=== PATIENT | male | born 1955 | race Caucasian/White ===

== ENCOUNTER → 2016-07-11 | Outpatient (CLI) | payer BC | END | disposition home or self-care (01) | LOC: GMAL 14:40 | PROVIDERS: ATTEND Family Medicine | DX: Z00.00 Encounter for general adult medical examination without abnormal findings (principal); E55.9 Vitamin D deficiency, unspecified ==

== ENCOUNTER → 2016-12-16 | Outpatient (CLI) | payer BC ==
--- NOTE | 2016-12-18 11:43 | MRI ---
Study: Noncontrast MRI of the left ankle. Exam Date: 12/16/2016 12:00 AM CDT Ordering Provider: WALDEMAR JOSEPH Clinical Indication: PAIN IN LEFT HIND FOOT Comparison: None Technique: Multiplanar, multisequence MR images of the left ankle were obtained on a high-field magnet without contrast. Findings: There is thickening and increased signal seen within the proximal attachment of the plantar fascia compatible with mild to moderate plantar fasciitis. No definite plantar fascial tear. ATFL, PTFL, and CFL are intact. Anterior tendons are normal in signal and morphology. The flexor tendons and peroneal tendons are unremarkable. Achilles tendon is intact. Nonspecific inflammatory changes seen within Kager's fat pad without fluid collection or definite tenosynovitis. No lesion seen in the sinus tarsi or tarsal tunnel. No bone marrow edema or significant degenerative change. Visualized cartilage appears intact. Impression: 1. [id number] plantar fasciitis without definite plantar fascial tear. 2. Nonspecific edema with Kager's fat pad. Electronically signed by: Branden Christian MD 12/18/2016 11:42 AM CDT
== END | disposition home or self-care (01) ==
LOC: MRI 08:06
PROVIDERS: ATTEND Physical Medicine & Rehabilitation
DX: Z79.891 Long term (current) use of opiate analgesic (principal); M72.2 Plantar fascial fibromatosis; M79.672 Pain in left foot; M51.36 Other intervertebral disc degeneration, lumbar region

== ENCOUNTER → 2018-05-01 | Outpatient (CLI) | payer BC | LOC: GMAL 10:43 | PROVIDERS: ATTEND Family Medicine | DX: Z00.01 Encounter for general adult medical examination with abnormal findings (principal) ==

== ENCOUNTER → 2019-05-29 | Outpatient (CLI) | payer BC | LOC: GMAL 16:26 | PROVIDERS: ATTEND Family Medicine | DX: R30.0 Dysuria (principal); R35.0 Frequency of micturition; R53.82 Chronic fatigue, unspecified ==

== ENCOUNTER 2019-06-04 20:03 | Emergency (ER) | payer BC ==
[2019-06-04 20:24] VITALS: TEMP 97.9; O2SAT 97
[2019-06-04] MEDS: SODIUM CHLORIDE 0.9% 1000ML 1,000 ML IVS ONE (21:13)
[2019-06-04] MEDS: KETOROLAC TROMETHAMINE INJ 30 MG/ML VIAL IV ONE (21:14)
--- NOTE | 2019-06-04 21:44 | CT ---
EXAM DESCRIPTION: Abdoment/Pelvis w/o Contrast CLINICAL HISTORY: 63 years Male R FLANK PAIN, SUSPECT NEPHROLITHIASIS. COMPARISON: None TECHNIQUE: Images were obtained in axial, sagittal, and coronal planes. No intravenous contrast was administered. This exam was performed according to our departmental dose-optimization program which includes use of Automated Exposure Control, adjustment of the mA and/or kV according to patient size and/or use of iterative reconstruction technique. FINDINGS: 1.4 cm calculus right renal pelvis. No associated hydronephrosis. Additional 5 mm nonobstructing calculus inferior left kidney. No hydronephrosis on left. Unremarkable bladder. Enlarged prostate gland with calcification. Bilateral inguinal hernias which contain only mesenteric fat. No abnormality involving the liver, pancreas, gallbladder, or adrenal glands bilaterally. Spleen is enlarged measuring 13.6 cm in greatest dimension. No dilatation abdominal aorta. No adenopathy or abnormal fluid collections seen. Appendix not well identified however no secondary signs for appendicitis. No bowel obstruction or perforation. Diverticulosis distal left colon with no associated inflammatory change. Metallic fixation posteriorly L4-5 and L5-S1 levels. No acute osseous abnormality. No abnormality lower lungs bilaterally. IMPRESSION: 1.4 cm calculus right renal pelvis with no significant hydronephrosis. Early staghorn calculus is suspected. Additional punctate nonobstructing calcification inferior left kidney. Enlarged prostate gland. Electronically signed by: Liz Castro MD 06/04/2019 9:43 PM CDT
[2019-06-04] MEDS: TAMSULOSIN 0.4 MG CAP PO ONE (22:01)
[2019-06-04 22:03] VITALS: BP 138/88
--- NOTE | 2019-06-04 23:09 | ED.PDOC ---
History of Present Illness - General Chief Complaint: GI Problem Stated Complaint: right mid back pain, and groin pain Time Seen by Provider: 06/04/19 20:30 Information Source: patient Exam Limitations: no limitations - History of Present Illness Initial Comments: R GREATER THAN L FLANK PAIN. 2 WKS, INTERMITTENT. BLOOD IN URINE PER DR. MCKEON THUS SUSPECTED KIDNEY STONE. Abdominal Pain Onset Location: flank Pain Radiation: groin Quality: moderate, intermittent Improving Factors: nothing Worsening Factors: nothing Associated Symptoms: denies symptoms Review of Systems - Review of Systems Constitutional: States: no symptoms reported EENTM: States: no symptoms reported Respiratory: States: no symptoms reported Cardiology: States: no symptoms reported Gastrointestinal/Abdominal: Denies: constipation, diarrhea, nausea, vomiting Genitourinary: Denies: dysuria, frequency Musculoskeletal: States: no symptoms reported Skin: States: no symptoms reported Neurological: States: no symptoms reported Endocrine: States: no symptoms reported Hematologic/Lymphatic: States: no symptoms reported All other Systems: Reviewed and Negative Past Medical History (General) - Patient Medical History Hx Seizures: No Hx Stroke: No Hx Dementia: No Hx Asthma: No Hx of COPD: No Hx Cardiac Disorders: No Hx Congestive Heart Failure: No Hx Pacemaker: No Hx Hypertension: Yes Hx Thyroid Disease: No Hx Diabetes: No Hx Gastroesophageal Reflux: No Hx Renal Disease: No Hx Cancer: No Hx of HIV: No Hx Hepatitis C: No Hx MRSA: No Surgical History: other - Vaccination History Hx Tetanus, Diphtheria Vaccination: Yes Hx Influenza Vaccination: Yes Hx Pneumococcal Vaccination: No - Social History Hx Tobacco Use: Yes Hx Chewing Tobacco Use: No Hx Alcohol Use: No Hx Substance Use: No Hx Substance Use Treatment: No Hx Depression: No Feels Threatened In Home Enviroment: No Feels Threatened In a Relationship: No Hx Physical Abuse: No Hx Emotional Abuse: No Hx Suspected Abuse: No - Female History Patient is a Female of Child Bearing Age (10 -59 yrs old): No - Triage Comment ED Triage Comment: The patient was having pain in his right flank and the pain came and went over the past 2 weeks. Family Medical History - Family History Mother Family History: No Known Physical Exam - Physical Exam General Appearance: Alert, No apparent distress Eyes, Ears, Nose, Throat Exam: normal ENT inspection Neck: normal inspection Respiratory: no respiratory distress, no accessory muscle use Cardiovascular/Chest: normal peripheral pulses Gastrointestinal/Abdominal: normal bowel sounds, non tender, soft, no organomegaly Back Exam: normal inspection, no CVA tenderness Extremity: normal inspection Neurologic: alert, normal mood/affect Skin Exam: normal color, warm/dry Lymphatic: no adenopathy Progress - Results/Orders Results/Orders: STAGHORN CALCULUS, R RENAL PELVIS 1.4 CM. L INFERIOR KIDNEY 0.5 CM. BOTH ARE NON-OBSTRUCTING AND NOT YET LOCATED IN URETERS BUT ARE CAUSING SX. GAVE TORADOL. MILD DEHYDRATION - BUN 21. BOLUSED. WITH LARGE 1.4 CM R STONE, IT WILL EVENTUALLY NEED UROLOGICAL INTERVENTION, THUS REFERRED. Departure - Departure Clinical Impression: Staghorn calculus, Bilateral flank pain, Mild dehydration, Elevated BUN Disposition: Discharge to Home or Self Care Condition: Good Departure Forms: ED Discharge - Pt. Copy, Patient Portal Self Enrollment Instructions: Kidney Stones in Adults Diet: resume usual diet Activity: increase activity as tolerated Referrals: Juanjo Mckeon III, MD [Primary Care Provider] - 1-2 Weeks Additional Instructions: Please try to drink at least 64 ounces of water per day. Take ibuprofen as needed for pain. Please see urology since the stone on the right side is large.
== END 2019-06-04 23:15 | disposition home or self-care (01) ==
LOC: ER 20:03
DX: N20.0 Calculus of kidney (principal); E86.0 Dehydration; I10 Essential (primary) hypertension; F17.200 Nicotine dependence, unspecified, uncomplicated
CPT/HCPCS: 74176; 80053; 81001; 85025; J1885; J7030

== ENCOUNTER → 2020-04-24 | Outpatient (CLI) | payer OTHER | LOC: GMAL 12:35 | PROVIDERS: ATTEND Family Medicine | DX: D51.3 Other dietary vitamin B12 deficiency anemia (principal); E29.1 Testicular hypofunction; R53.82 Chronic fatigue, unspecified; E55.9 Vitamin D deficiency, unspecified; I10 Essential (primary) hypertension ==